=== PATIENT | female | born 1995 | race Two or more races ===

== ENCOUNTER 2017-08-31 13:26 | Emergency (ER) | payer OTHER ==
[2017-08-31 13:32] VITALS: BP 109/75
[2017-08-31] MEDS ORDERED: ONDANSETRON DISINTEGRATING 4 MG TAB PO ONE (13:36)
--- NOTE | 2017-08-31 15:15 | EDPHY ---
H & P Stated Complaint: Cold sore last week, seen at dentist and started meds. Two days ago w/ NVD Source: Patient Exam Limitations: No limitations - Personal History LMP (Females 10-55): 8-14 Days Ago Current Tetanus/Diphtheria Vaccine: Yes - Medical/Surgical History Hx Asthma: No Hx Chronic Respiratory Disease: No Hx Diabetes: No Hx Cardiac Disease: No Hx Renal Disease: No Hx Cirrhosis: No Hx Alcoholism: No Hx HIV/AIDS: No Hx Splenectomy or Spleen Trauma: No Other PMH: None - Social History Smoking Status: Unknown if ever smoked Time Seen by Provider: 08/31/17 15:15 HPI/ROS: HPI: This is a 22-year-old female who presents with Chief Complaint: Cold sore last week, seen at dentist and started meds. Two days ago w/ NVD Location: Left side of roof of mouth Quality: Sore Duration: Several days Signs and Symptoms: no fever, + nausea, + vomiting, no diarrhea, no urinary symptoms, no chest pain, no shortness of breath, no wheezing, no cough, no sore throat, no neck stiffness, no joint pain, no swollen glands, no ear pain, no rash, no urinary symptoms Timing: Acute, waxes and wane Severity: [id number] Context: Patient reports that she went to the dentist last week and had a cleaning and diagnosed with a cold sore. She was started on acyclovir 200 mg 2 times a day for 10 days; she is on day 5. Several days after starting the acyclovir she reports that she started to feel nauseous with a sore throat with chills at night and fatigue. Denies any cough, abdominal pain, vomiting, urinary symptoms. LMP 1-2 weeks ago. She has not traveled outside of the country. No recent tick bite. Her primary care provider center rapid strep test on Thursday that was negative and throat culture was negative on Thursday but she was started on amoxicillin for which she is on day 3. Modifying Factors: Acyclovir Comment: ROS: see HPI Constitutional: No fever, + chills, no weight loss Eyes: No blurred vision Respiratory: No shortness of breath, no cough Cardiovascular: No chest pain, no palpitations Gastrointestinal: + nausea, + vomiting, no diarrhea, no hematemesis, no blood in stool Genitourinary: No dysuria, no blood in urine Extremities: No myalgias, no edema Neurologic: No weakness, no numbness Skin: No rashes, no petechiae Hematologic: No bruising, no bleeding MEDICAL/SURGICAL/SOCIAL HISTORY: Medical history: Generally healthy. Does not take any regular medications. Surgical history: Denies Social history: Former smoker. Family history noncontributory. CONSTITUTIONAL: Extremely well-appearing young adult white female, awake and alert, no obvious distress HEENT: Atraumatic and normocephalic, PERRL, EOMI. Nares patent; no rhinorrhea; no nasal mucosal edema. Tympanic membranes clear. Oropharynx shows small pinpoint aphthous ulcer of the left hard palate; no exudate and moist pink mucosa. Airway patent. No lymphadenopathy. No meningismus. Cardiovascular: Normal S1/S2, regular rate, regular rhythm, without murmur rub or gallop. PULMONARY/CHEST: Symmetrical and nontender. Clear to auscultation bilaterally. Good air movement. No accessory muscle usage. ABDOMEN: Soft, nondistended, nontender, no rebound, no guarding, no peritoneal signs, no masses or organomegaly. No CVAT. EXTREMITIES: 2/2 pulses, strength 5/5, no deformities, no clubbing, no cyanosis or edema. NEUROLOGICAL: no focal neuro deficits. GCS 15. SKIN: Warm and dry, no erythema. no rash. Good capillary refill. (Amina Foreman) Constitutional: Initial Vital Signs Temperature (C) 36.4 C 08/31/17 13:29 Heart Rate 90 08/31/17 13:29 Respiratory Rate 16 08/31/17 13:29 Blood Pressure 109/75 08/31/17 13:29 O2 Sat (%) 97 08/31/17 13:29 O2 Delivery Mode Room Air Allergies/Adverse Reactions: No Known Allergies Allergy (Unverified 03/04/15 02:07) Home Medications: Medication Instructions Recorded Acyclovir 400 mg PO Q8 #21 tablet 08/31/17 Ondansetron Odt [Zofran Odt 4 mg 4 mg PO Q4 PRN #12 tab 08/31/17 (*)] Medical Decision Making ED Course/Re-evaluation: Vital signs reviewed and stable upon arrival. Rapid strep test negative and given p.o. Zofran 4 mg. No signs of tonsillar abscess, sepsis, meningitis. I'm going to increase Acyclovir dosing to 400 mg every 8 hr x7 days. Labs reviewed. No signs of leukocytosis/anemia/platelet dysfunction/XIN/ electrolyte imbalance. ESR is elevated at 38 Advised supportive care. This patient was seen under the supervision of my secondary supervising physician. I evaluated care for this patient independently. Discussed this patient with Dr. Dorsey. (Amina Foreman) The patient was evaluated and managed by the physician assistant research scientist. I have reviewed this chart and I agree with the findings and plan of care as documented , as indicated by my signature. I am the secondary supervising physician. ( Mireya Dorsey) Differential Diagnosis: Differential diagnosis includes but is not limited to strep pharyngitis, upper respiratory infection, viral syndrome, herpes simplex. (Amina Foreman) - Data Points Laboratory Results: Laboratory Results 08/31/17 15:42 08/31/17 15:42 Medications Given: Discontinued Medications Ondansetron HCl (Zofran Odt) 4 mg PO EDNOW ONE Stop: 08/31/17 13:37 Last Admin: 08/31/17 13:39 Dose: 4 mg Departure - Departure Disposition: Home, Routine, Self-Care Clinical Impression: Viral syndrome, Oral herpes simplex infection Condition: Good Instructions: Oral Herpes Simplex Virus Infections (ED), Viral Syndrome (ED) Additional Instructions: Consume a minimum of 8-10 glasses of water or electrolyte fluid replacement drinks that include Gatorade, Powerade, Pedialyte. Eat a bland diet for the next 48 hours and then slowly advance as tolerated. Take Zofran 1 tab every 4 hours as needed Take amoxicillin as directed by primary care provider. Do not skip doses. Perform salt water gargles swish and spit after every meal and at bedtime. Referrals: Zahira Gonzalez MD [Primary Care Provider] - 5-7 days, if not improved Prescriptions: Acyclovir 400 mg PO Q8 #21 tablet Ondansetron Odt [Zofran Odt 4 mg (*)] 4 mg PO Q4 PRN #12 tab PRN Reason: Nausea/Vomiting, Use 1st
[2017-08-31 15:58] LABS: PLATELET COUNT 281 10^3/uL (150-400)
== END 2017-08-31 16:30 | disposition home or self-care (01) ==
DX: B00.9 Herpesviral infection, unspecified (principal); Z87.891 Personal history of nicotine dependence